=== PATIENT | male | born 1955 | race Caucasian/White ===

== ENCOUNTER 2020-04-13 07:32 | Observation (INO) | payer OTHER ==
--- NOTE | 2020-04-13 07:47 | EDM.PDOC ---
ED HPI GENERAL MEDICAL PROBLEM - General Chief Complaint: Abdominal Pain Stated Complaint: ABDOMINAL,BACK AND SHOULDER PAIN Time Seen by Provider: 04/13/20 07:46 Source of Information: Reports: Patient History Limitations: Reports: No Limitations - History of Present Illness INITIAL COMMENTS - FREE TEXT/NARRATIVE: 64-year-old male presents to the ED with diffuse right upper quadrant abdominal pain rating along the costal margin into his inferior scapula on the right side. Difficult to take deep breath and is splinting on the right side. States pain started on evening after eating this was April 17. Patient reports a similar type bout 2 weeks prior but it settled with time. He does not know if he has gallstones. States his bowel movement was normal on Tuesday. No change in color. Tuesday morning he thought the pain was easing up until he ate again and then the pain has come back and has persisted. No position comfortable overnight. He slept only about an hour. No associated fever or chills. Minimal nausea with no vomiting. No diarrhea. He has had a left inguinal hernia [place]. He states he has had an appendectomy but I cannot find a scar to correlate with this. Onset: Sudden Onset Date: 04/10/20 Duration: Getting Worse, Waxing/Waning Location: Reports: Abdomen (Gastrum right upper quadrant of the abdomen rating around the costal margin to the infrascapular area.) Quality: Reports: Ache, Pressure Severity: Moderate (8 out of 10) Improves with: Reports: None Worsens with: Reports: Eating (Breathing or eating makes it worse.), Other Context: Denies: Activity, Exercise, Lifting, Sick Contact, Trauma, Other Associated Symptoms: Reports: Loss of Appetite, Malaise, Nausea/Vomiting, Shortn ess of Breath. 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 (see below) (None.) Abdomen Pain Score (Numeric/FACES): 6 - Related Data Allergies Allergy/AdvReac Type Severity Reaction Status Date / Time No Known Allergies Allergy Verified 04/13/20 07:38 Home Meds: Home Meds Allopurinol [Zyloprim] 300 mg PO DAILY 04/13/20 [History] Aspirin [Aspirin EC] 81 mg PO DAILY 04/13/20 [History] Chlorthalidone 12.5 mg PO DAILY 04/13/20 [History] Ramipril [Altace] 5 mg PO DAILY 04/13/20 [History] Past Medical History Cardiovascular History: Reports: Hypertension Musculoskeletal History: Reports: Gout (Allopurinol to prevent gout recurrence) Social & Family History - Living Situation & Occupation Living situation: Reports: Occupation: Employed ED ROS GENERAL - Review of Systems Review Of Systems: See Below Constitutional: Reports: Malaise, Weakness, Fatigue, Decreased Appetite. Denies: Fever, Chills HEENT: Reports: Glasses Respiratory: Reports: Shortness of Breath (Cannot take a full deep breath as it makes the abdominal pain worse.) Cardiovascular: Reports: Blood Pressure Problem Endocrine: Reports: Fatigue GI/Abdominal: Reports: Abdominal Pain (See history of present illness.), Constipation, Decreased Appetite (Constipation), Nausea. Denies: Diarrhea, Flatus, Hematemesis, Melena, Stool Incontinence, Vomiting : Reports: No Symptoms Musculoskeletal: Reports: Back Pain ([facility] thoracic back pain. States this is predates his current abdominal pain problem) Skin: Reports: No Symptoms Neurological: Reports: No Symptoms Psychiatric: Reports: No Symptoms Hematologic/Lymphatic: Reports: No Symptoms Immunologic: Reports: No Symptoms ED EXAM, GI/ABD - Physical Exam Exam: See Below Exam Limited By: No Limitations General Appearance: Alert, WD/WN, Moderate Distress (In obvious pain and distress. Splinting respirations.), Other Eyes: Bilateral: Normal Appearance (No blepharal pallor or scleral icterus.) Throat/Mouth: Normal Lips, Normal Teeth, Other (Tongue is mildly dry and coated.) Head: Atraumatic, Normocephalic Neck: Normal Inspection, Supple, Non-Tender, Full Range of Motion. No: Carotid Bruit, Lymphadenopathy (L), Lymphadenopathy (R) Respiratory/Chest: Lungs Clear (Mild tachypnea.), Normal Breath Sounds, Respiratory Distress, Splinting (Planting respirations on the right side) Cardiovascular: Normal Peripheral Pulses, Regular Rate, Rhythm, No Edema, No Gallop, No Murmur, No Rub GI/Abdominal Exam: Soft, No Organomegaly, No Mass, Pelvis Stable, Guarding, Tender (Moderate tenderness right upper quadrant of the abdomen with a positive Ivy sign.), Abnormal Bowel Sounds (Bowel sounds are very quiesced sent throughout all 4 quadrants.), Other (Has a small umbilical hernia which is easily reducible.). No: Rigid, Rebound (Upper quadrant of the abdomen.) (Male) Exam: No Hernia, Other (Inguinal hernia [place] scar left side) Back Exam: Normal Inspection, Full Range of Motion. No: CVA Tenderness (L), CVA Tenderness (R) Extremities: Normal Inspection, Normal Range of Motion, Non-Tender, No Pedal Edema Neurological: Alert, Oriented, CN II-XII Intact, Normal Cognition Psychiatric: Flat Affect, Other (And a good deal of pain.) Skin Exam: Warm, Dry, Intact, Normal Color, No Rash EKG INTERPRETATION EKG Date: 04/13/20 Time: 08:02 Rhythm: NSR Rate (Beats/Min): 86 [place]: Normal P-Wave: Enlarged (Sitter left atrial hypertrophy) QRS: Other (Initial poor R wave progression.) ST-T: Normal (Minimally prolonged) QT: Prolonged EKG Interpretation Comments: No signs of ischemia borderline ECG Course - Vital Signs Last Recorded V/S: Last Vital Signs Temp 36.6 C 04/13/20 07:35 Pulse 84 04/13/20 07:35 Resp 20 04/13/20 07:35 BP 165/85 H 04/13/20 07:35 Pulse Ox 98 04/13/20 07:35 - Orders/Labs/Meds Orders: Active Orders 24 hr Category Date Time Status EKG Documentation Completion [RC] STAT Care 04/13/20 07:57 Active Dextrose 5%-0.9% NaCl [Dextrose 5%-Normal Saline] 1,000 Med 04/13/20 08:00 Active ml IV ASDIRECTED Schedule Procedure [COMM] Routine Oth 04/13/20 12:19 Ordered Medication Orders Dextrose/Sodium Chloride (Dextrose 5%-Normal Saline) 1,000 mls @ 500 mls/hr IV ASDIRECTED [facility] Admin: 04/13/20 08:18 Dose: 500 mls/hr Documented by: LESA Labs: Laboratory Tests 04/13/20 04/13/20 04/13/20 Range/Units 08:31 08:31 08:31 WBC 14.40 H (4.23-9.07) K/mm3 RBC 4.97 (4.63-6.08) M/mm3 Hgb 15.0 (13.7-17.5) gm/dl Hct 44.4 (40.1-51.0) % MCV 89.3 (79.0-92.2) fl MCH 30.2 (25.7-32.2) pg MCHC 33.8 (32.2-35.5) g/dl RDW Std Deviation 44.5 H (35.1-43.9) fL Plt Count 213 (163-337) K/mm3 MPV 8.9 L (9.4-12.3) fl Neut % (Auto) 70.7 H (34.0-67.9) % Lymph % (Auto) 16.8 L (21.8-53.1) % [place] % (Auto) 11.9 (5.3-12.2) % Eos % (Auto) 0.3 L (0.8-7.0) Baso % (Auto) 0.1 (0.1-1.2) % Neut # (Auto) 10.17 H (1.78-5.38) K/mm3 Lymph # (Auto) 2.42 (1.32-3.57) K/mm3 [place] # (Auto) 1.71 H (0.30-0.82) K/mm3 Eos # (Auto) 0.05 (0.04-0.54) K/mm3 Baso # (Auto) 0.02 (0.01-0.08) K/mm3 Manual Slide Review Abnormal smear PT 10.9 (9.7-12.0) SECONDS INR 1.00 APTT 31 (22-31) SECONDS Sodium 137 (136-145) mEq/L Potassium 3.5 (3.5-5.1) mEq/L Chloride 98 (98-107) mEq/L Carbon Dioxide 30 (21-32) mEq/L Anion Gap 12.5 (5-15) BUN 17 (7-18) mg/dL Creatinine 1.3 (0.7-1.3) mg/dL Est Cr Clr Drug Dosing 63.01 mL/min Estimated GFR (MDRD) 56 (>60) mL/min BUN/Creatinine Ratio 13.1 L (14-18) Glucose 128 H (80-115) mg/dL Uric Acid 4.8 (3.5-7.2) mg/dL Calcium 9.3 (8.5-10.1) mg/dL Magnesium 1.8 (1.8-2.4) mg/dl Total Bilirubin 1.3 H (0.2-1.0) mg/dL GGT 27 (15-85) U/L AST 17 (15-37) U/L ALT 29 (16-63) U/L Alkaline Phosphatase 155 H (46-116) U/L Troponin I < 0.017 (0.00-0.056) ng/mL C-Reactive Protein 18.2 H* (<1.0) mg/dL NT-Pro-B Natriuret Pep (0-125) pg/mL Total Protein 7.6 (6.4-8.2) g/dl Albumin 3.8 (3.4-5.0) g/dl Globulin 3.8 gm/dL Albumin/Globulin Ratio 1.0 (1-2) Lipase 85 (73-393) U/L Urine Color (Yellow) Urine Appearance (Clear) Urine pH (5.0-8.0) Ur Specific [place] (1.005-1.030) Urine Protein (Negative) Urine Glucose (UA) (Negative) Urine Ketones (Negative) Urine Occult Blood (Negative) Urine Nitrite (Negative) Urine Bilirubin (Negative) Urine Urobilinogen (0.2-1.0) Ur Leukocyte Esterase (Negative) Urine RBC (0-5) /hpf Urine WBC (0-5) /hpf Ur Epithelial Cells (0-5) /hpf Amorphous Sediment (NOT SEEN) /hpf Urine Bacteria (FEW) /hpf Urine Mucus (FEW) /hpf COVID-19 (PETE) (NEGATIVE) 04/13/20 04/13/20 04/13/20 Range/Units 08:31 10:00 10:15 WBC (4.23-9.07) K/mm3 RBC (4.63-6.08) M/mm3 Hgb (13.7-17.5) gm/dl Hct (40.1-51.0) % MCV (79.0-92.2) fl MCH (25.7-32.2) pg MCHC (32.2-35.5) g/dl RDW Std Deviation (35.1-43.9) fL Plt Count (163-337) K/mm3 MPV (9.4-12.3) fl Neut % (Auto) (34.0-67.9) % Lymph % (Auto) (21.8-53.1) % [place] % (Auto) (5.3-12.2) % Eos % (Auto) (0.8-7.0) Baso % (Auto) (0.1-1.2) % Neut # (Auto) (1.78-5.38) K/mm3 Lymph # (Auto) (1.32-3.57) K/mm3 [place] # (Auto) (0.30-0.82) K/mm3 Eos # (Auto) (0.04-0.54) K/mm3 Baso # (Auto) (0.01-0.08) K/mm3 Manual Slide Review PT (9.7-12.0) SECONDS INR APTT (22-31) SECONDS Sodium (136-145) mEq/L Potassium (3.5-5.1) mEq/L Chloride (98-107) mEq/L Carbon Dioxide (21-32) mEq/L Anion Gap (5-15) BUN (7-18) mg/dL Creatinine (0.7-1.3) mg/dL Est Cr Clr Drug Dosing mL/min Estimated GFR (MDRD) (>60) mL/min BUN/Creatinine Ratio (14-18) Glucose (80-115) mg/dL Uric Acid (3.5-7.2) mg/dL Calcium (8.5-10.1) mg/dL Magnesium (1.8-2.4) mg/dl Total Bilirubin (0.2-1.0) mg/dL GGT (15-85) U/L AST (15-37) U/L ALT (16-63) U/L Alkaline Phosphatase (46-116) U/L Troponin I (0.00-0.056) ng/mL C-Reactive Protein (<1.0) mg/dL NT-Pro-B Natriuret Pep 68 (0-125) pg/mL Total Protein (6.4-8.2) g/dl Albumin (3.4-5.0) g/dl Globulin gm/dL Albumin/Globulin Ratio (1-2) Lipase (73-393) U/L Urine Color Dark yellow (Yellow) Urine Appearance Clear (Clear) Urine pH 6.0 (5.0-8.0) Ur Specific [place] 1.020 (1.005-1.030) Urine Protein Negative (Negative) Urine Glucose (UA) Negative (Negative) Urine Ketones 3+ H (Negative) Urine Occult Blood 1+ H (Negative) Urine Nitrite Negative (Negative) Urine Bilirubin Negative (Negative) Urine Urobilinogen 1.0 (0.2-1.0) Ur Leukocyte Esterase Negative (Negative) Urine RBC 0-5 (0-5) /hpf Urine WBC 0-5 (0-5) /hpf Ur Epithelial Cells Not seen (0-5) /hpf Amorphous Sediment Rare H (NOT SEEN) /hpf Urine Bacteria Few (FEW) /hpf Urine Mucus Many H (FEW) /hpf COVID-19 (PETE) Negative (NEGATIVE) Meds: Medications Generic Name Dose Route Start Last Admin Trade Name Freq PRN Reason Stop Dose Admin Dextrose/Sodium Chloride 1,000 mls @ 500 mls/hr 04/13/20 08:00 04/13/20 08:18 Dextrose 5%-Normal Saline IV 500 mls/hr ASDIRECTED LOLY Administration Discontinued Medications Generic Name Dose Route Start Last Admin Trade Name Freq PRN Reason Stop Dose Admin Hydromorphone HCl 1 mg 04/13/20 07:56 04/13/20 08:15 Dilaudid IVPUSH 04/13/20 07:57 1 mg ONETIME ONE Administration Piperacillin Sod/Tazobactam 100 mls @ 200 mls/hr 04/13/20 09:44 04/13/20 10:16 Sod 4.5 gm/ Sodium Chloride IV 04/13/20 10:13 200 mls/hr ONETIME ONE Administration Iopamidol 100 ml 04/13/20 10:05 04/13/20 10:06 Isovue-300 (61%) IVPUSH 04/13/20 10:06 100 ml ONETIME ONE Administration Metoclopramide HCl 10 mg 04/13/20 07:56 04/13/20 08:12 Reglan IVPUSH 04/13/20 07:57 10 mg ONETIME ONE Administration - Radiology Interpretation Free Text/Narrative:: 64-year-old male presents to the ED with right upper quadrant abdominal pain epigastric pain rating around the costal margin to the right back inferior to the scapula. Characteristic biliary colic. This for started evening April 10 after eating. It lasted mildly throughout Tuesday. On Tuesday morning he thought it was getting better. Pain reoccurred after he ate dinner on Tuesday or yesterday and has persisted since that time. The history suggests a acute cholecystitis versus choledocholithiasis. Routine labs to be obtained including a GGT and serum lipase. Current pain is 8 out of 10. Plan IV will be D5 normal saline at 500 mils per hour. Given Dilaudid 1 mg IV and Reglan 10 mg IV for pain and nausea relief. CT his abdomen and he will have 1 view of the chest. CT to be done without oral contrast at this time - Re-Assessments/Exams Free Text/Narrative Re-Assessment/Exam: 04/13/20 09:08 Labs reveal an elevated white count at 14.40. Differential auto differential shows 71% neutrophils. Hemoglobin is 15.0 with hematocrit of 44.4. MCV is 89.3. Platelet count is 213,000. PT is 10.9 with an INR of 1.0. PTT is 31. Chest x-ray done portably reveals slight atelectasis within both lung bases. Lungs are otherwise clear. Heart size and mediastinum are normal. Bony structures appear unremarkable. 04/13/20 09:54 The hematology slide reveals no bands cells. Sodium 137 with potassium of 3.5. Chloride 98 with a bicarb of 38. Anion gap is 12.5. BUN is 17 with a creatinine of 1.3. Glucose 128 with a uric acid of 4.8. Calcium is 9.3 with a magnesium of 1.8. Total bilirubin is mildly elevated at 1.3. GGT is normal at 27 AST is 17 with an ALT of 29. Alk phos stays slightly elevated 155. Therefore no signs of biliary tree obstruction clinically. Lipase is 85. CRP is markedly elevated at 18.2 suggesting infection. BNP is 68. Total protein 7.6 with an albumin fraction of 3.8. 04/13/20 09:55 Plan: he is booked for CT of the abdomen and an ultrasound of his gallbladder. Dr. Hope on-call surgeon is made aware of the patient and we will discuss the case after the imaging studies are completed. Dr. Hope is asked that we place the patient on Zosyn 4.5 g IV. This will be ordered. He will also require COVID test since he will likely be headed for the OR today. 04/13/20 10:45; T of the abdomen and pelvis has been completed with IV contrast only. Findings reveal slightly increased density within both lung bases which radiologist believes represents a combination of atelectasis and scarring. Liver contains no focal abnormality. Small to moderate sized hiatal hernia is evident. Spleen appears normal. Adrenal glands show no nodules. Questionable gallbladder wall thickening and gallbladder wall edema. No calcified gallstones are seen. Kidneys show symmetric contrast enhancement with no hydronephrosis or mass. Pancreas shows no discrete abnormality. Aorta shows atherosclerotic change which continues into the iliac vessels. No retroperitoneal adenopathy or mesenteric abnormalities are noted. No pelvic mass or adenopathy is seen. Small fat-containing bilateral inguinal hernias are evident. Diverticulosis is noted within the sigmoid colon with no acute diverticulitis. Appendix is not visualized with any degree of certainty. Small fat-containing umbilical hernia appreciated as well. Bone window settings show mild scattered degenerative change about the spine no acute osseous finding are appreciated. 04/13/20 12:10 ultrasound of the gallbladder has been completed. Liver shows no focal parenchymal abnormality. Gallbladder wall is mildly thickened with mild pericholecystic edema. There is no shadowing gallstones being seen. No biliary duct dilatation is appreciated. Right kidney shows no hydronephrosis or mass and has a length of 10.4 cm. Pancreas shows no discrete abnormality. Inferior vena cava is patent. Main portal vein shows hepatopetal flow. 04/13/20 12:37 Dr. Hope's spoke with the patient and his . The plan will be to take him to the operating room for an acute cholecystectomy. Diagnosis is acute cholecystitis. 19 test is negative. Departure - Departure Time of Disposition: 12:38 Disposition: Admitted As Inpatient 66 Condition: Fair Clinical Impression: Acute cholecystitis, Right upper quadrant abdominal pain - Discharge Information *PRESCRIPTION DRUG MONITORING PROGRAM REVIEWED*: Not Applicable *COPY OF PRESCRIPTION DRUG MONITORING REPORT IN PATIENT LE: Not Applicable Referrals: Rico Vigil Jr, MD [Primary Care Provider] - Forms: ED Department Discharge Sepsis Event Note (ED) - Focused Exam Vital Signs: Vital Signs Temp Pulse Resp BP Pulse Ox 04/13/20 07:35 36.6 C 84 20 165/85 H 98 - My Orders Last 24 Hours: My Active Orders 04/13/20 07:57 EKG Documentation Completion [RC] STAT 04/13/20 08:00 Dextrose 5%-0.9% NaCl [Dextrose 5%-Normal Saline] 1,000 ml IV ASDIRECTED - Assessment/Plan Last 24 Hours: My Active Orders 04/13/20 07:57 EKG Documentation Completion [RC] STAT 04/13/20 08:00 Dextrose 5%-0.9% NaCl [Dextrose 5%-Normal Saline] 1,000 ml IV ASDIRECTED
[2020-04-13] MEDS ORDERED: Metoclopramide 10 MG/2 ML SDV IVPUSH ONE (07:56)
[2020-04-13] MEDS ORDERED: HYDROmorphone 1 MG/ML Syringe IVPUSH ONE (07:56)
[2020-04-13] MEDS ORDERED: Dextrose 5%-0.9% NaCl 1,000 ML IV SCH (08:00)
[2020-04-13] MEDS ORDERED: Piperacillin/Tazobactam 4.5 GM in Sodium Chloride 0.9% 100 ML IV ONE (09:44)
[2020-04-13] MEDS ORDERED: Iopamidol 612 MG/ML 100 ML Bottle IVPUSH ONE (10:05)
--- NOTE | 2020-04-13 10:17 | CT ---
CT abdomen and pelvis Technique: Multiple axial sections were obtained from above the dome of the diaphragm inferiorly through the pubic symphysis. Intravenous contrast was utilized. No oral contrast has been given. Findings: Slight increased density within both lung bases which I believe represents a combination of atelectasis and scarring. Liver contains no focal abnormality. Small to moderate sized hiatal hernia is noted. Spleen appears normal. Adrenal glands show no nodule. Questionable gallbladder wall thickening and gallbladder wall edema. No calcified gallstones are seen. Kidneys show symmetric contrast enhancement with no hydronephrosis or mass. Pancreas shows no discrete abnormality. Aorta shows atherosclerotic change which continues into the iliac vessels. No retroperitoneal adenopathy or mesenteric abnormalities are seen. No pelvic mass or adenopathy is seen. Small fat-containing bilateral inguinal hernias are noted. Diverticulosis is noted within the sigmoid colon without diverticulitis. Appendix is not visualized with certainty. Small fat-containing umbilical hernia is also noted. Bone window settings shows mild scattered degenerative change about the spine. No acute osseous finding is appreciated. Impression: 1. Slightly abnormal appearance of the gallbladder wall. Gallbladder ultrasound recommended to see if this represents real pathology. 2. Atelectasis and scarring is noted within both lung bases. 3. Other findings as noted above believed to be nonacute. Diagnostic code #3 This report was dictated in MDT
--- NOTE | 2020-04-13 10:58 | CR ---
Chest: Portable view of the chest was obtained. Comparison: No prior chest imaging is available. Findings: Slight atelectasis is seen within the left lung base. Lungs otherwise are clear. Heart size and mediastinum are normal. Bony structures are unremarkable. Impression: 1. Mild left basilar atelectasis. 2. Nothing acute is seen on portable chest x-ray. Diagnostic code #2 This report was dictated in MDT
--- NOTE | 2020-04-13 12:01 | US ---
Limited abdominal ultrasound: Multiple real-time images of the upper right abdomen were obtained. Comparison: Previous abdominal and pelvic CT study performed on the same day (9:47 AM). Technologist's note: Patient had difficulty holding breath. Findings: Liver shows no focal parenchymal abnormality. Gallbladder wall is mildly thickened with mild pericholecystic edema. There is no shadowing gallstones being seen. No biliary duct dilatation is appreciated. Right kidney shows no hydronephrosis or mass and has a length of 10.4 cm. Pancreas shows no discrete abnormality is visualized. Inferior vena cava is patent. Main portal vein shows hepatopedal flow. Impression: 1. Gallbladder wall thickening with mild pericholecystic edema. No shadowing gallstones or gallbladder wall thickening is seen. Difficult to exclude acalculous cholecystitis. Biliary HIDA scan with ejection fraction could be confirmatory if clinically needed. 2. No additional abnormality is seen on right upper quadrant abdominal ultrasound. Diagnostic code #3 This report was dictated in MDT
--- NOTE | 2020-04-13 12:30 | PCM.HP.2 ---
H&P History of Present Illness - General Date of Service: 04/13/20 Admit Problem/Dx: acute cholecystitis Source of Information: Patient History Limitations: Reports: No Limitations - History of Present Illness Other HPI/Comments: Mr. Estrella is a 64 yo man presenting with RUQ pain. He had his initial episode of pain about 2 weeks ago, but this resolved spontaneously. He started to have the pain again three days ago in the evening, and vomited at that time. Since then, the pain has not really gone away, though he was feeling better yesterday morning until he started engaging in more physical activity. In the ER, he has a CT scan and US with findings suggestive of cholecystitis, without evidence of gallstones or bile duct dilation. His bilirubin and alk phos are slightly elevated. The patient is relatively healthy, taking chlorthalidone and ramipril for HTN and allopurinol for gout. He has had appendectomy and inguinal hernia repair in the past. Abdomen Pain Score (Numeric/FACES): 6 - Related Data Allergies/Adverse Reactions: Allergies Allergy/AdvReac Type Severity Reaction Status Date / Time No Known Allergies Allergy Verified 04/13/20 07:38 Home Medications: Home Meds Allopurinol [Zyloprim] 300 mg PO DAILY 04/13/20 [History] Aspirin [Aspirin EC] 81 mg PO DAILY 04/13/20 [History] Chlorthalidone 12.5 mg PO DAILY 04/13/20 [History] Ramipril [Altace] 5 mg PO DAILY 04/13/20 [History] Past Medical History Cardiovascular History: Reports: Hypertension Gastrointestinal History: Reports: None Musculoskeletal History: Reports: Gout (Allopurinol to prevent gout recurrence) - Past Surgical History Respiratory Surgical History: Reports: None Social & Family History - Tobacco Use Smoking Status *Q: Never Smoker - Living Situation & Occupation Living situation: Reports: Occupation: Employed H&P Review of Systems - Review of Systems: Review Of Systems: See Below General: Reports: Malaise HEENT: Reports: No Symptoms Pulmonary: Reports: No Symptoms Cardiovascular: Reports: No Symptoms Gastrointestinal: Reports: Abdominal Pain, Nausea, Vomiting Skin: Reports: No Symptoms Neurological: Reports: No Symptoms Hematologic/Lymphatic: Reports: No Symptoms Exam - Exam Exam: See Below - Vital Signs Vital Signs: Last Vital Signs Temp 36.6 C 07/12/20 07:35 Pulse 84 04/13/20 07:35 Resp 20 04/13/20 07:35 BP 165/85 H 04/13/20 07:35 Pulse Ox 98 04/13/20 07:35 Weight: 104.326 kg - Exam General: Alert, Oriented, Cooperative HEENT: Conjunctiva Clear Neck: Trachea Midline Lungs: Clear to Auscultation Cardiovascular: Regular Rate GI/Abdominal Exam: Soft, No Mass, Other (mild RUQ tenderness) Extremities: Normal Inspection Skin: Warm, Dry Psychiatric: Normal Mood - Patient Data Lab Results Last 24 hrs: Laboratory Results - last 24 hr 04/13/20 04/13/20 04/13/20 Range/Units 08:31 08:31 08:31 WBC 14.40 H (4.23-9.07) K/mm3 RBC 4.97 (4.63-6.08) M/mm3 Hgb 15.0 (13.7-17.5) gm/dl Hct 44.4 (40.1-51.0) % MCV 89.3 (79.0-92.2) fl MCH 30.2 (25.7-32.2) pg MCHC 33.8 (32.2-35.5) g/dl RDW Std Deviation 44.5 H (35.1-43.9) fL Plt Count 213 (163-337) K/mm3 MPV 8.9 L (9.4-12.3) fl Neut % (Auto) 70.7 H (34.0-67.9) % Lymph % (Auto) 16.8 L (21.8-53.1) % Clare % (Auto) 11.9 (5.3-12.2) % Eos % (Auto) 0.3 L (0.8-7.0) Baso % (Auto) 0.1 (0.1-1.2) % Neut # (Auto) 10.17 H (1.78-5.38) K/mm3 Lymph # (Auto) 2.42 (1.32-3.57) K/mm3 Clare # (Auto) 1.71 H (0.30-0.82) K/mm3 Eos # (Auto) 0.05 (0.04-0.54) K/mm3 Baso # (Auto) 0.02 (0.01-0.08) K/mm3 Manual Slide Review Abnormal smear PT 10.9 (9.7-12.0) SECONDS INR 1.00 APTT 31 (22-31) SECONDS Sodium 137 (136-145) mEq/L Potassium 3.5 (3.5-5.1) mEq/L Chloride 98 (98-107) mEq/L Carbon Dioxide 30 (21-32) mEq/L Anion Gap 12.5 (5-15) BUN 17 (7-18) mg/dL Creatinine 1.3 (0.7-1.3) mg/dL Est Cr Clr Drug Dosing 63.01 mL/min Estimated GFR (MDRD) 56 (>60) mL/min BUN/Creatinine Ratio 13.1 L (14-18) Glucose 128 H (80-115) mg/dL Uric Acid 4.8 (3.5-7.2) mg/dL Calcium 9.3 (8.5-10.1) mg/dL Magnesium 1.8 (1.8-2.4) mg/dl Total Bilirubin 1.3 H (0.2-1.0) mg/dL GGT 27 (15-85) U/L AST 17 (15-37) U/L ALT 29 (16-63) U/L Alkaline Phosphatase 155 H (46-116) U/L Troponin I < 0.017 (0.00-0.056) ng/mL C-Reactive Protein 18.2 H* (<1.0) mg/dL NT-Pro-B Natriuret Pep (0-125) pg/mL Total Protein 7.6 (6.4-8.2) g/dl Albumin 3.8 (3.4-5.0) g/dl Globulin 3.8 gm/dL Albumin/Globulin Ratio 1.0 (1-2) Lipase 85 (73-393) U/L Urine Color (Yellow) Urine Appearance (Clear) Urine pH (5.0-8.0) Ur Specific [place] (1.005-1.030) Urine Protein (Negative) Urine Glucose (UA) (Negative) Urine Ketones (Negative) Urine Occult Blood (Negative) Urine Nitrite (Negative) Urine Bilirubin (Negative) Urine Urobilinogen (0.2-1.0) Ur Leukocyte Esterase (Negative) Urine RBC (0-5) /hpf Urine WBC (0-5) /hpf Ur Epithelial Cells (0-5) /hpf Amorphous Sediment (NOT SEEN) /hpf Urine Bacteria (FEW) /hpf Urine Mucus (FEW) /hpf COVID-19 (PETE) (NEGATIVE) 04/13/20 04/13/20 04/13/20 Range/Units 08:31 10:00 10:15 WBC (4.23-9.07) K/mm3 RBC (4.63-6.08) M/mm3 Hgb (13.7-17.5) gm/dl Hct (40.1-51.0) % MCV (79.0-92.2) fl MCH (25.7-32.2) pg MCHC (32.2-35.5) g/dl RDW Std Deviation (35.1-43.9) fL Plt Count (163-337) K/mm3 MPV (9.4-12.3) fl Neut % (Auto) (34.0-67.9) % Lymph % (Auto) (21.8-53.1) % Clare % (Auto) (5.3-12.2) % Eos % (Auto) (0.8-7.0) Baso % (Auto) (0.1-1.2) % Neut # (Auto) (1.78-5.38) K/mm3 Lymph # (Auto) (1.32-3.57) K/mm3 Clare # (Auto) (0.30-0.82) K/mm3 Eos # (Auto) (0.04-0.54) K/mm3 Baso # (Auto) (0.01-0.08) K/mm3 Manual Slide Review PT (9.7-12.0) SECONDS INR APTT (22-31) SECONDS Sodium (136-145) mEq/L Potassium (3.5-5.1) mEq/L Chloride (98-107) mEq/L Carbon Dioxide (21-32) mEq/L Anion Gap (5-15) BUN (7-18) mg/dL Creatinine (0.7-1.3) mg/dL Est Cr Clr Drug Dosing mL/min Estimated GFR (MDRD) (>60) mL/min BUN/Creatinine Ratio (14-18) Glucose (80-115) mg/dL Uric Acid (3.5-7.2) mg/dL Calcium (8.5-10.1) mg/dL Magnesium (1.8-2.4) mg/dl Total Bilirubin (0.2-1.0) mg/dL GGT (15-85) U/L AST (15-37) U/L ALT (16-63) U/L Alkaline Phosphatase (46-116) U/L Troponin I (0.00-0.056) ng/mL C-Reactive Protein (<1.0) mg/dL NT-Pro-B Natriuret Pep 68 (0-125) pg/mL Total Protein (6.4-8.2) g/dl Albumin (3.4-5.0) g/dl Globulin gm/dL Albumin/Globulin Ratio (1-2) Lipase (73-393) U/L Urine Color Dark yellow (Yellow) Urine Appearance Clear (Clear) Urine pH 6.0 (5.0-8.0) Ur Specific [place] 1.020 (1.005-1.030) Urine Protein Negative (Negative) Urine Glucose (UA) Negative (Negative) Urine Ketones 3+ H (Negative) Urine Occult Blood 1+ H (Negative) Urine Nitrite Negative (Negative) Urine Bilirubin Negative (Negative) Urine Urobilinogen 1.0 (0.2-1.0) Ur Leukocyte Esterase Negative (Negative) Urine RBC 0-5 (0-5) /hpf Urine WBC 0-5 (0-5) /hpf Ur Epithelial Cells Not seen (0-5) /hpf Amorphous Sediment Rare H (NOT SEEN) /hpf Urine Bacteria Few (FEW) /hpf Urine Mucus Many H (FEW) /hpf COVID-19 (PETE) Negative (NEGATIVE) Result Diagrams: 04/13/20 08:31 04/13/20 08:31 Sepsis Event Note - Evaluation Sepsis Screening Result: No Definite Risk - Focused Exam Vital Signs: Vital Signs Temp Pulse Resp BP Pulse Ox 04/13/20 07:35 36.6 C 84 20 165/85 H 98 Date Exam was Performed: 04/13/20 Time Exam was Performed: 12:20 *Q Meaningful Use (ADM) - VTE Risk Assess *Q Each Risk Factor Represents 2 Points: Age 60 - 74 Years, Laparoscopic surgery greater than 45 minutes Total Score 2 Point Risk Factors: 4 Problem List Initiated/Reviewed/Updated: Yes Orders Last 24hrs: Active Orders 24 hr Category Date Time Status EKG Documentation Completion [RC] STAT Care 04/13/20 07:57 Active Dextrose 5%-0.9% NaCl [Dextrose 5%-Normal Saline] 1,000 Med 04/13/20 08:00 Active ml IV ASDIRECTED Schedule Procedure [COMM] Routine Oth 04/13/20 12:19 Ordered Medication Orders Dextrose/Sodium Chloride (Dextrose 5%-Normal Saline) 1,000 mls @ 500 mls/hr IV ASDIRECTED [facility] Admin: 04/13/20 08:18 Dose: 500 mls/hr Documented by: LESA Assessment/Plan Comment:: Acute cholecystitis, with question of acalculous cholecystitis based on images and possible biliary obstruction based on labs, although there is no evidence for this on ultrasound or CT scan. Plan for laparoscopic cholecystectomy, with consent obtained for possible intraoperative cholangiography if deemed necessary. I discussed the role of ERCP for treatment of biliary obstruction if we discover this to be present on cholangiography, which would require transfer to a center with available advanced endoscopic treatment. I reviewed the details of surgery, expectations post-operatively, and risks including post-operative hemorrhage, bile duct injur y, biloma, abscess. All questions were answered to the patient and his 's satisfaction and informed consent was obtained. Discharge to home this afternoon versus overnight observation will be determined based on operative findings. - Mortality Measure Prognosis:: Good
--- NOTE | 2020-04-13 12:41 | PCM.PREANE ---
Preanesthetic Assessment - Anesthesia/Transfusion/Family Hx Anesthesia History: Prior Anesthesia Without Reaction Family History of Anesthesia Reaction: No Transfusion History: No Prior Transfusion(s) Intubation History: Unknown - Review of Systems General: No Symptoms, Fatigue Pulmonary: Cough Cardiovascular: No Symptoms (HTN), Dyspnea on Exertion (occasionally) Gastrointestinal: No Symptoms (GERD), Decreased Appetite Neurological: No Symptoms (Gout) Other: Reports: None, Sinus Problem - Physical Assessment NPO Status Date: 04/13/20 NPO Status Time: 07:00 Vital Signs: Last Vital Signs Temp 36.6 C 04/13/20 07:35 Pulse 84 04/13/20 07:35 Resp 20 04/13/20 07:35 BP 165/85 H 04/13/20 07:35 Pulse Ox 98 04/13/20 07:35 Height: 1.83 m Weight: 104.326 kg ASA Class: 2E Mental Status: Alert & Oriented x3 Airway Class: Mallampati = 2 Dentition: Reports: Normal Dentition, Caries Thyro-Mental Finger Breadths: 3 Mouth Opening Finger Breadths: 3 ROM/Head Extension: Full Lungs: Clear to Auscultation, Normal Respiratory Effort Cardiovascular: Regular Rate, Regular Rhythm, No Murmurs - Lab Values: Laboratory Last Values WBC 14.40 K/mm3 (4.23-9.07) H 04/13/20 08:31 RBC 4.97 M/mm3 (4.63-6.08) 04/13/20 08:31 Hgb 15.0 gm/dl (13.7-17.5) 04/13/20 08:31 Hct 44.4 % (40.1-51.0) 04/13/20 08:31 MCV 89.3 fl (79.0-92.2) 04/13/20 08:31 MCH 30.2 pg (25.7-32.2) 04/13/20 08:31 MCHC 33.8 g/dl (32.2-35.5) 04/13/20 08:31 RDW Std Deviation 44.5 fL (35.1-43.9) H 04/13/20 08:31 Plt Count 213 K/mm3 (163-337) 04/13/20 08:31 MPV 8.9 fl (9.4-12.3) L 04/13/20 08:31 Neut % (Auto) 70.7 % (34.0-67.9) H 04/13/20 08:31 Lymph % (Auto) 16.8 % (21.8-53.1) L 04/13/20 08:31 [place] % (Auto) 11.9 % (5.3-12.2) 04/13/20 08:31 Eos % (Auto) 0.3 (0.8-7.0) L 04/13/20 08:31 Baso % (Auto) 0.1 % (0.1-1.2) 04/13/20 08:31 Neut # (Auto) 10.17 K/mm3 (1.78-5.38) H 04/13/20 08:31 Lymph # (Auto) 2.42 K/mm3 (1.32-3.57) 04/13/20 08:31 [place] # (Auto) 1.71 K/mm3 (0.30-0.82) H 04/13/20 08:31 Eos # (Auto) 0.05 K/mm3 (0.04-0.54) 04/13/20 08:31 Baso # (Auto) 0.02 K/mm3 (0.01-0.08) 04/13/20 08:31 Manual Slide Review Abnormal smear 04/13/20 08:31 PT 10.9 SECONDS (9.7-12.0) 04/13/20 08:31 INR 1.00 04/13/20 08:31 APTT 31 SECONDS (22-31) 04/13/20 08:31 Sodium 137 mEq/L (136-145) 04/13/20 08:31 Potassium 3.5 mEq/L (3.5-5.1) 04/13/20 08:31 Chloride 98 mEq/L (98-107) 04/13/20 08:31 Carbon Dioxide 30 mEq/L (21-32) 04/13/20 08:31 Anion Gap 12.5 (5-15) 04/13/20 08:31 BUN 17 mg/dL (7-18) 04/13/20 08:31 Creatinine 1.3 mg/dL (0.7-1.3) 04/13/20 08:31 Est Cr Clr Drug Dosing 63.01 mL/min 04/13/20 08:31 Estimated GFR (MDRD) 56 mL/min (>60) 04/13/20 08:31 BUN/Creatinine Ratio 13.1 (14-18) L 04/13/20 08:31 Glucose 128 mg/dL (80-115) H 04/13/20 08:31 Uric Acid 4.8 mg/dL (3.5-7.2) 04/13/20 08:31 Calcium 9.3 mg/dL (8.5-10.1) 04/13/20 08:31 Magnesium 1.8 mg/dl (1.8-2.4) 04/13/20 08:31 Total Bilirubin 1.3 mg/dL (0.2-1.0) H 04/13/20 08:31 GGT 27 U/L (15-85) 04/13/20 08:31 AST 17 U/L (15-37) 04/13/20 08:31 ALT 29 U/L (16-63) 04/13/20 08:31 Alkaline Phosphatase 155 U/L (46-116) H 04/13/20 08:31 Troponin I < 0.017 ng/mL (0.00-0.056) 04/13/20 08:31 C-Reactive Protein 18.2 mg/dL (<1.0) H* 04/13/20 08:31 NT-Pro-B Natriuret Pep 68 pg/mL (0-125) 04/13/20 08:31 Total Protein 7.6 g/dl (6.4-8.2) 04/13/20 08:31 Albumin 3.8 g/dl (3.4-5.0) 04/13/20 08:31 Globulin 3.8 gm/dL 04/13/20 08:31 Albumin/Globulin Ratio 1.0 (1-2) 04/13/20 08:31 Lipase 85 U/L (73-393) 04/13/20 08:31 Urine Color Dark yellow (Yellow) 04/13/20 10:00 Urine Appearance Clear (Clear) 04/13/20 10:00 Urine pH 6.0 (5.0-8.0) 04/13/20 10:00 Ur Specific [place] 1.020 (1.005-1.030) 04/13/20 10:00 Urine Protein Negative (Negative) 04/13/20 10:00 Urine Glucose (UA) Negative (Negative) 04/13/20 10:00 Urine Ketones 3+ (Negative) H 04/13/20 10:00 Urine Occult Blood 1+ (Negative) H 04/13/20 10:00 Urine Nitrite Negative (Negative) 04/13/20 10:00 Urine Bilirubin Negative (Negative) 04/13/20 10:00 Urine Urobilinogen 1.0 (0.2-1.0) 04/13/20 10:00 Ur Leukocyte Esterase Negative (Negative) 04/13/20 10:00 Urine RBC 0-5 /hpf (0-5) 04/13/20 10:00 Urine WBC 0-5 /hpf (0-5) 04/13/20 10:00 Ur Epithelial Cells Not seen /hpf (0-5) 04/13/20 10:00 Amorphous Sediment Rare /hpf (NOT SEEN) H 04/13/20 10:00 Urine Bacteria Few /hpf (FEW) 04/13/20 10:00 Urine Mucus Many /hpf (FEW) H 04/13/20 10:00 COVID-19 (PETE) Negative (NEGATIVE) 04/13/20 10:15 Above labs reviewed and noted and within acceptable ranges to proceed with scheduled procedure. - Imaging/EKG Impressions: EKG:SR rate= 86, consider left atrial hypertrophy, poor r wave progression CXR: mild left basilar atelectasis - Allergies Allergies/Adverse Reactions: Allergies Allergy/AdvReac Type Severity Reaction Status Date / Time No Known Allergies Allergy Verified 04/13/20 07:38 - Anesthesia Plan Pre-Op Medication Ordered: None - Acknowledgements Anesthesia Type Planned: General Anesthesia Pt an Appropriate Candidate for the Planned Anesthesia: Yes Alternatives and Risks of Anesthesia Discussed w Pt/Guardian: Yes Pt/Guardian Understands and Agrees with Anesthesia Plan: Yes PreAnesthesia Questionnaire Cardiovascular History: Reports: Hypertension Gastrointestinal History: Reports: None Musculoskeletal History: Reports: Gout (Allopurinol to prevent gout recurrence) - Past Surgical History Respiratory Surgical History: Reports: None - SUBSTANCE USE Smoking Status *Q: Never Smoker - HOME MEDS Home Medications: Home Meds Allopurinol [Zyloprim] 300 mg PO DAILY 04/13/20 [History] Aspirin [Aspirin EC] 81 mg PO DAILY 04/13/20 [History] Chlorthalidone 12.5 mg PO DAILY 04/13/20 [History] Ramipril [Altace] 5 mg PO DAILY 04/13/20 [History] - CURRENT (IN HOUSE) MEDS Current Meds: Current Medications Dextrose/Sodium Chloride (Dextrose 5%-Normal Saline) 1,000 mls @ 500 mls/hr IV ASDIRECTED LOLY Last Admin: 04/13/20 08:18 Dose: 500 mls/hr Documented by: Discontinued Medications Hydromorphone HCl (Dilaudid) 1 mg IVPUSH ONETIME ONE Stop: 04/13/20 07:57 Last Admin: 04/13/20 08:15 Dose: 1 mg Documented by: Piperacillin Sod/Tazobactam (Sod 4.5 gm/ Sodium Chloride) 100 mls @ 200 mls/hr IV ONETIME ONE Stop: 04/13/20 10:13 Last Admin: 04/13/20 10:16 Dose: 200 mls/hr Documented by: Iopamidol (Isovue-300 (61%)) 100 ml IVPUSH ONETIME ONE Stop: 04/13/20 10:06 Last Admin: 04/13/20 10:06 Dose: 100 ml Documented by: Metoclopramide HCl (Reglan) 10 mg IVPUSH ONETIME ONE Stop: 04/13/20 07:57 Last Admin: 04/13/20 08:12 Dose: 10 mg Documented by:
[2020-04-13] MEDS ORDERED: Lactated Ringers 1,000 ML IV SCH ×2 (12:45→16:30)
[2020-04-13] MEDS ORDERED: Bupivacaine 0.5%/EPINEPHrine 1:200,000 50 ML MDV ONE (12:55)
[2020-04-13] MEDS ORDERED: Ketorolac 30 MG/ML SDV ONE (12:58)
[2020-04-13] MEDS ORDERED: HYDROmorphone 0.5 MG/0.5 ML Syringe ONE ×2 (12:58→15:47)
[2020-04-13] MEDS ORDERED: Lidocaine 1% 6 ML ONE (12:58)
[2020-04-13] MEDS ORDERED: Ondansetron 4 MG/2 ML SDV ONE (12:58)
[2020-04-13] MEDS ORDERED: Propofol 200 MG/20 ML SDV ONE (12:58)
[2020-04-13] MEDS ORDERED: Rocuronium 50 MG/5 ML Vial ONE (12:58)
[2020-04-13] MEDS ORDERED: Dexamethasone 4 MG/ML 5 ML MDV ONE (12:58)
[2020-04-13] MEDS ORDERED: Lactated Ringers 2,000 ML ONE (12:58)
[2020-04-13] MEDS ORDERED: Midazolam 1 MG/ML 2 ML SDV ONE (12:59)
[2020-04-13] MEDS ORDERED: fentaNYL 250 MCG/5 ML SDV ONE (12:59)
[2020-04-13] MEDS ORDERED: ePHEDrine Sulfate/0.9% NaCl/Pf 25 MG/5 ML SYRINGE IV ONE (14:12)
[2020-04-13] MEDS ORDERED: HYDROmorphone 0.5 MG/0.5 ML Syringe IVPUSH PRN (14:16)
[2020-04-13] MEDS ORDERED: Ondansetron 4 MG/2 ML SDV IVPUSH PRN (14:16)
[2020-04-13] MEDS ORDERED: fentaNYL 100 MCG/2 ML SDV IVPUSH PRN (14:16)
[2020-04-13] MEDS ORDERED: Albuterol 0.083% 2.5 MG/3 ML Neb Soln NEB PRN (14:16)
[2020-04-13] MEDS ORDERED: ePHEDrine 50 MG/ML SDV IVPUSH PRN (14:16)
[2020-04-13] MEDS ORDERED: diphenhydrAMINE 50 MG/ML SDV IVPUSH PRN (14:16)
[2020-04-13] MEDS ORDERED: Labetalol 100 MG/20 ML MDV ONE (14:25)
[2020-04-13] MEDS ORDERED: Phenylephrine 1 MG in Sodium Chloride 0.9% 10 ML IV SCH (14:30)
[2020-04-13] MEDS ORDERED: fentaNYL 100 MCG/2 ML SDV ONE (15:48)
[2020-04-13] MEDS ORDERED: Morphine 2 MG/ML SYRINGE IVPUSH PRN (16:16)
--- NOTE | 2020-04-13 16:34 | PCM.PRNOTE ---
- Free Text/Narrative Note: Operative Report Operation: laparoscopic cholecystectomy Date: 04/13/2020 Attending Surgeon: Cezar Hope MD Indication for Surgery: acute cholecystitis Preoperative antibiotics: zosyn VTE prophylaxis: SCDs Estimated Blood Loss: 100 cc Findings: severely inflamed gallbladder, with what appeared to be gallbladder wall perforation from an eroding gallstone, with densely adherent omentum walling off the defect. Critical view of safety obtained. Detailed Report: The patient underwent general endotracheal anesthesia after being placed supine on the operating table and initial timeout. The abdomen was prepped and draped in sterile fashion. A pre-incision timeout was performed confirming the patients identity and the operation to be performed. A Veress needle was inserted into the abdominal cavity below the left costal margin along the mid- clavicular line. The abdomen was insufflated with CO2 to 15 mm Hg. Gas was aspirated just superior to the umbilicus with a syringe in order to ensure safe placement of a 5 mm bladed laparoscopic port. The 5mm 30 degree laparoscope was then inserted and viscera inspected. Two additional 5 mm ports were placed along the right subcostal region under direct vision with the laparoscope, and a 12 mm port was placed at the subxiphoid region. There was densely adherent omentum to the gallbladder, which was severely inflamed and thickened. A laparoscopic hollow needle was used to decompress the gallbladder at the fundus in order to permit easier manipulation with graspers. About 30 cc of thin bilious material was aspirated. The gallbladder was grasped at the fundus with a locking grasper and retracted anteriorly and superiorly. Slow, careful blunt dissection pr oceeded. A thick encasement of omentum was dissected until the infundibulum was identified. A combination of hook electrode, blunt dissection with the suction congressional assistant and laparoscopic Kittner dissector, and the [place] grasper were used to carefully expose and skeletonize the cystic duct and artery. A critical view of safety was obtained. Hemolock clips were then placed on both structures. The duct and artery were transected with laparoscopic scissors between the hemolock clips. The hook was then used to dissect the gallbladder free from its attachment to the liver. This was also a tedious process as tissue planes were distorted and the gallbladder was friable. During handling, a 2 cm gallstone spilled from an opening at the gallbladder body that had initially not been apparent, though the defect was quite large. This seemed to be associated with where omentum was densely adherent to the gallbladder body, and I wonder if previously a walled-off perforation of the gallbladder had occurred. The specimen including the gallstone was then placed in an Endocatch bag and removed through the subxiphoid port. The liver bed was inspected, irrigated and suctioned. Surgicel and floseal were left in the gallbladder fossa, though there was no obvious active hemorrhage from the raw liver edge. The larger subxiphoid port was closed at the level of the fascia with vicryl suture using the PMI laparoscopic suture passer. Pneumoperitoneum was then released. All skin incisions were then closed with placement of subcuticular vicryl suture and dressed with dermabond. A total of 32 cc 0.5% marcaine with epinephrine was used for local anesthesia at the incision sites. The patient tolerated the operation well, was extubated in the operating room and transferred to the PACU for routine post-anesthesia care.
--- NOTE | 2020-04-13 16:37 | PCM.POSTAN ---
POST ANESTHESIA ASSESSMENT - MENTAL STATUS Mental Status: Alert - VITAL SIGNS Vital Signs: Last Vital Signs Temp 36.3 C 04/13/20 16:20 Pulse 74 04/13/20 1620 Resp 12 04/13/20 16:20 BP 147/76 H 04/13/20 16:20 Pulse Ox 91 L 04/13/20 16:20 - RESPIRATORY Respiratory Status: Respiratory Rate WNL, Airway Patent, O2 Saturation Stable, Supplemental Oxygen - CARDIOVASCULAR CV Status: Pulse Rate WNL, Blood Pressure Stable - GASTROINTESTINAL GI Status: No Symptoms - POST OP HYDRATION Hydration Status: Adequate & Stable
[2020-04-13] MEDS: Acetaminophen 325 MG Tab PO SCH ×2 (18:00→23:01)
[2020-04-13] MEDS: oxyCODONE 5 MG Tab PO PRN (23:00)
[2020-04-14] MEDS: oxyCODONE 5 MG Tab PO PRN (03:03)
--- NOTE | 2020-04-14 07:43 | PCM48HPAN ---
Post Anesthesia Note - EVALUATION WITHIN 48HRS OF ANESTHETIC Vital Signs in Normal Range: Yes Patient Participated in Evaluation: Yes Respiratory Function Stable: Yes Airway Patent: Yes Cardiovascular Function Stable: Yes Hydration Status Stable: Yes Pain Control Satisfactory: Yes Nausea and Vomiting Control Satisfactory: Yes Mental Status Recovered: Yes (sitting up in bed. pleased with anesthesia. is hungry) Vital Signs: Last Vital Signs Temp 97.5 F 04/14/20 03:01 Pulse 56 L 04/14/20 03:01 Resp 18 04/14/20 03:01 BP 125/85 04/14/20 03:01 Pulse Ox 92 L 04/14/20 03:01
[2020-04-14] MEDS: Acetaminophen 325 MG Tab PO SCH (08:02)
--- NOTE | 2020-04-21 08:40 | PCM.DCSUM1 ---
Discharge Summary - Hospital Course Free Text/Narrative:: Admitted with severe cholecystitis and underwent laparoscopic cholecystectomy without complication Diagnosis: Stroke: No - Discharge Data Discharge Date: 04/14/20 Discharge Disposition: Home, Self-Care 01 Condition: Good - Referral to Home Health Primary Care Physician: Rico Vigil Jr, MD - Discharge Plan *PRESCRIPTION DRUG MONITORING PROGRAM REVIEWED*: Not Applicable *COPY OF PRESCRIPTION DRUG MONITORING REPORT IN PATIENT LE: Not Applicable Prescriptions/Med Rec: oxyCODONE 5 mg PO Q6H PRN #10 tab PRN Reason: Pain Home Medications: Home Meds Allopurinol [Zyloprim] 300 mg PO DAILY 04/13/20 [History] Chlorthalidone 12.5 mg PO DAILY 04/13/20 [History] Ramipril [Altace] 5 mg PO DAILY 04/13/20 [History] oxyCODONE 5 mg PO Q6H PRN #10 tab 04/14/20 [Rx] Patient Handouts: Gallbladder Eating Plan, Cholecystitis, [id number] Referrals: Rico Vigil Jr, MD [Primary Care Provider] - 04/28/20 3:00 pm (Please follow up with Dr. Vigil on April 28 at 3pm.) Cezar Hope MD [Physician] - 04/28/20 11:30 am (Please follow up with Dr. Hope on on April 28 at 11:30.) - Discharge Summary/Plan Comment DC Time >30 min.: No - Patient Data Vitals - Most Recent: Last Vital Signs Temp 36.7 C 04/14/20 12:12 Pulse 63 04/14/20 12:12 Resp 20 04/14/20 12:12 BP 145/80 H 04/14/20 12:12 Pulse Ox 90 L 04/14/20 12:12 Weight - Most Recent: 108.499 kg Med Orders - Current: Current Medications Discontinued Medications Acetaminophen (Tylenol) 975 mg PO Q8H LOLY Last Admin: 04/14/20 08:02 Dose: 975 mg Documented by: Albuterol (Proventil Neb Soln) 2.5 mg NEB ONETIME PRN PRN Reason: bronchodilation Bupivacaine HCl/Epinephrine Bitart (Marcaine 0.5%/Epinephrine 1:200,000) Confirm Administered Dose 50 ml .ROUTE .STK-MED ONE Stop: 04/13/20 12:56 Last Admin: 04/13/20 14:14 Dose: 32 ml Documented by: Dexamethasone (Dexamethasone) Confirm Administered Dose 20 mg .ROUTE .STK-MED ONE Stop: 04/13/20 12:59 Diphenhydramine HCl (Benadryl) 25 mg IVPUSH Q6H PRN PRN Reason: pruritis Ephedrine Sulfate (Ephedrine 25 Mg/5 Ml Syringe) Confirm Administered Dose 25 mg IV .STK-MED ONE Stop: 04/13/20 14:13 Ephedrine Sulfate (Ephedrine Sulfate) 5 mg IVPUSH ASDIRECTED PRN PRN Reason: Hypotension Fentanyl (Sublimaze) Confirm Administered Dose 250 mcg .ROUTE .STK-MED ONE Stop: 04/13/20 13:00 Fentanyl (Sublimaze) 50 mcg IVPUSH Q5M PRN PRN Reason: Pain Fentanyl (Sublimaze) Confirm Administered Dose 100 mcg .ROUTE .STK-MED ONE Stop: 04/13/20 15:49 Hydromorphone HCl (Dilaudid) 1 mg IVPUSH ONETIME ONE Stop: 04/13/20 07:57 Last Admin: 04/13/20 08:15 Dose: 1 mg Documented by: Hydromorphone HCl (Dilaudid) Confirm Administered Dose 0.5 mg .ROUTE .STK-MED ONE Stop: 04/13/20 12:59 Hydromorphone HCl (Dilaudid) 0.5 mg IVPUSH ONETIME PRN PRN Reason: Pain Hydromorphone HCl (Dilaudid) Confirm Administered Dose 0.5 mg .ROUTE .STK-MED ONE Stop: 04/13/20 15:48 Dextrose/Sodium Chloride (Dextrose 5%-Normal Saline) 1,000 mls @ 500 mls/hr IV ASDIRECTED LOLY Last Admin: 04/13/20 08:18 Dose: 500 mls/hr Documented by: Piperacillin Sod/Tazobactam (Sod 4.5 gm/ Sodium Chloride) 100 mls @ 200 mls/hr IV ONETIME ONE Stop: 04/13/20 10:13 Last Admin: 04/13/20 10:16 Dose: 200 mls/hr Documented by: Lactated Ringer's (Ringers, Lactated) 1,000 mls @ 500 mls/hr IV .BOLUS LOLY Lidocaine HCl (Xylocaine-Mpf 1%) Confirm Administered Dose 6 mls @ as directed .ROUTE .STK-MED ONE Stop: 04/13/20 12:59 Lactated Ringer's (Ringers, Lactated) Confirm Administered Dose 2,000 mls @ as directed .ROUTE .STK-MED ONE Stop: 04/13/20 12:59 Phenylephrine HCl 1 mg/ Sodium (Chloride) 10.1 mls @ 1 mls/sec IV TITRATE LOLY; Protocol Lactated Ringer's (Ringers, Lactated) 1,000 mls @ 100 mls/hr IV ASDIRECTED LOLY Last Admin: 04/13/20 21:56 Dose: 100 mls/hr Documented by: Iopamidol (Isovue-300 (61%)) 100 ml IVPUSH ONETIME ONE Stop: 04/13/20 10:06 Last Admin: 04/13/20 10:06 Dose: 100 ml Documented by: Ketorolac Tromethamine (Toradol) Confirm Administered Dose 30 mg .ROUTE .STK-MED ONE Stop: 04/13/20 12:59 Labetalol HCl (Normodyne) Confirm Administered Dose 100 mg .ROUTE .STK-MED ONE Stop: 04/13/20 14:26 Metoclopramide HCl (Reglan) 10 mg IVPUSH ONETIME ONE Stop: 04/13/20 07:57 Last Admin: 04/13/20 08:12 Dose: 10 mg Documented by: Midazolam HCl (Versed 1 Mg/Ml) Confirm Administered Dose 2 mg .ROUTE .STK-MED ONE Stop: 04/13/20 13:00 Miscellaneous Medication (Phenylephrine 1 Mg/10 Ml-Ns) Confirm Administered Dose 1 mg IV .STK-MED ONE Stop: 04/13/20 14:05 Morphine Sulfate (Morphine) 1 mg IVPUSH Q4H PRN PRN Reason: Pain (severe 7-10) Ondansetron HCl (Zofran) Confirm Administered Dose 4 mg .ROUTE .STK-MED ONE Stop: 04/13/20 12:59 Ondansetron HCl (Zofran) 4 mg IVPUSH ONETIME PRN PRN Reason: Nausea/Vomiting Oxycodone HCl (Oxycodone) 5 mg PO Q4H PRN PRN Reason: Pain (moderate 4-6) Last Admin: 04/14/20 03:03 Dose: 5 mg Documented by: Propofol (Diprivan 20 Ml) Confirm Administered Dose 200 mg .ROUTE .STK-MED ONE Stop: 04/13/20 12:59 Rocuronium [place] (Zemuron) Confirm Administered Dose 50 mg .ROUTE .STK-MED ONE Stop: 04/13/20 12:59
== END 2020-04-14 12:42 | disposition home or self-care (01) ==
LOC: JD.ED 07:32 → JD.SDS 13:16 → JD.MS 16:16
PROVIDERS: ADMIT Surgery; ATTEND Surgery
DX: K80.12 Calculus of gallbladder with acute and chronic cholecystitis without obstruction (principal); Z11.59 Encounter for screening for other viral diseases; I10 Essential (primary) hypertension; Z79.82 Long term (current) use of aspirin; Z79.899 Other long term (current) drug therapy
CPT/HCPCS: 36415; 47562; 71045; 74177; 76705; 80053; 81001; 82977; 83690; 83735; 83880; 84484; 84550; 85025; 85610; 85730; 86140; 87635; 93005; 94760; 96361; 96365; 96375; 99285; A9270; G0378; J0171; J1100; J1170; J2001; J2250; J2370; J2543; J2704; J2765; J3010; J3490; J7042; J7050; J7120; Q9967; 00790; 93010; J1885; J2405; U0002